=== PATIENT | male | born 1995 | race Caucasian/White ===

== ENCOUNTER 2016-07-16 09:54 | Emergency (ER) | payer BC, OTHER ==
[2016-07-16 09:59] VITALS: BP 141/86; PULSE 75; RESP 18; TEMP 97.3; O2SAT 94
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
== END 2016-07-16 11:06 | disposition home or self-care (01) ==
DX: S42.034A Nondisplaced fracture of lateral end of right clavicle, initial encounter for closed fracture (principal); J45.909 Unspecified asthma, uncomplicated; F17.200 Nicotine dependence, unspecified, uncomplicated; V13.4XXA Pedal cycle driver injured in collision with car, pick-up truck or van in traffic accident, initial encounter; Y92.410 Unspecified street and highway as the place of occurrence of the external cause; Y99.8 Other external cause status; Y93.89 Activity, other specified
CPT/HCPCS: A4565